=== PATIENT | female | born 1955 | race Caucasian/White ===

== ENCOUNTER → 2019-05-24 08:20 | Outpatient (CLI) | payer OTHER, SELFPAY ==
--- NOTE | ~2019-05-24 | MR_ITS ---
EXAMINATION: MR shoulder RT wo con DATE: 05/24/2019 09:09 INDICATION: Acute onset right shoulder pain TECHNIQUE: Magnetic resonance imaging (MRI) of the right shoulder was performed without intravenous c ontrast. Sequences included axial PD-weighted FS FSE, coronal oblique PD-weighted FS FSE, coronal obl ique T2-weighted FS FSE, sagittal PD-weighted FS FSE, and sagittal T1-weighted SE. COMPARISON: None. FINDINGS: Coracoacromial arch: The acromion undersurface is curved in morphology (type II). The coracoacromial ligament is normal. M ild acromioclavicular osteoarthritis. Rotator cuff: Full-thickness tear along the superior and middle facet footplates involving the entire infraspinatus tendon and all but a few of the bursal sided fibers of the anterior most supraspinatus tendon. 4-4.5 cm medial retraction of the tear margin. There is severe fatty atrophy of the infraspinatus muscle b esther. Mild fatty atrophy the supraspinatus muscle belly with mild feathery muscular edema which could be related to low-grade muscle strain along the posterior aspect of the supraspinatus muscle belly. There is complete lesser tuberosity avulsion of the insertion of the subscapularis tendon. The more c audal muscular insertion of the subscapularis appears to remain intact as do the bursal sided fibers of the tendon which remain contiguous with the transverse humeral ligament. Severe fatty atrophy of t he cephalad three fourths of the subscapularis muscle. There is mild tendinopathy without discrete te ar of the teres minor tendon. There is prominent feathery edema within the teres minor muscle belly c onsistent with low-grade muscle strain. Biceps tendon, glenoid labrum and glenohumeral cartilage: Moderate tendinopathy and longitudinal split tearing of the long head biceps tendon which is subluxed across the superficial margin of the inferior distal muscular portion of the subscapularis and acros s the lesser tuberosity subscapularis tendon tear defect. Degenerative tearing of the superior to pos terior and posterior inferior glenoid labrum. The inferior labrum is diminutive. Dorsal thickness car tilage loss with smooth chondral surface along the cephalad third of the glenoid and at the apex of t he humeral head, the latter which appears to articulate with the undersurface of the acromion. Fluid: Moderate-sized glenohumeral joint effusion with synovitis at the recesses of the joint space. No loos e osteochondral bodies. There is extension of the effusion into the subacromial/subdeltoid bursa. The re is mild edema extending caudally along the lateral margin of the proximal metaphyseal region of th e right humerus. Bones: Normal marrow signal with no fracture or pathologic marrow replacing process. Moderate cystic change at the greater tuberosity. Additional subarticular cystic change at the lateral head of the clavicle. IMPRESSION: 1. Massive rotator cuff tear involving the anterior infraspinatus, vast majority of the supraspinatus tendon and extending anteriorly to involve the entire lesser tuberosity insertion of the subscapular is tendon which is likely chronic in the severe associated muscular atrophy. 2. Muscular edema of the teres minor and posterior portion of the atrophic supraspinatus muscle belly consistent with more acute low-grade strain. 3. Mild glenohumeral osteoarthritis with degeneration along the superior to posterior inferior glenoi d labrum. 4. Moderate tendinopathy and longitudinal split tearing of the long head biceps tendon which is sublu xed medially across the lesser tuberosity. 5. Mild acromioclavicular osteoarthritis. Reviewed, dictated and finalized at location [facility]. 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
== END ==
DX: M19.011 Primary osteoarthritis, right shoulder (principal); R29.898 Other symptoms and signs involving the musculoskeletal system
CPT/HCPCS: 73221

== ENCOUNTER 2019-08-31 11:27 | Outpatient (CLI) | payer OTHER, SELFPAY ==
--- NOTE | ~2019-08-31 | CT_ITS ---
EXAMINATION: CT abdomen pelvis w con DATE: 08/31/2019 12:40 INDICATION: Right lower quadrant abdominal pain. Nausea, diarrhea. TECHNIQUE: Computed tomography (CT) of the abdomen and pelvis was performed with 100 cc Omnipaque 350 intravenous contrast. Automated exposure control and iterative reconstruction technique were employe d. Exam dose: 551.10 mGy-cm total exam DLP. COMPARISON: 10/15/2004 CT abdomen FINDINGS: The lung bases are clear of infiltrate or consolidation. Normal heart size. No pericardial or pleural effusion. Small sliding hiatal hernia. Status post cholecystectomy. No bile duct dilatation. 5.6 mm left hepatic cyst. The liver otherwise i s unremarkable. Normal splenic size. No pancreatic mass lesion or calcification or ductal dilatation. No adrenal mass lesion. 3 cm and 6 cm upper pole right renal cysts. The kidneys are otherwise unremarkable. No urinary tract calculus or hydroureteronephrosis. The urinary bladder is unremarkable. Status post hysterectomy. There is atherosclerotic calcification of the abdominal aorta and iliac arteries. No aneurysm is evid ent. No intraperitoneal or retroperitoneal or pelvic mass lesion or adenopathy or ascites. There is diverticulosis of the left colon; no CT evidence of diverticulitis. There is no CT evidence of appendicitis. No bowel obstruction, bowel wall thickening, pneumatosis. No intraperitoneal free ai r. There is prominent rotatory levoscoliosis and multilevel degenerative disc disease of the lower thora cic and lumbar spine. IMPRESSION: Small sliding hiatal hernia Status post cholecystectomy Status post hysterectomy Small left hepatic cyst Right renal cysts Diverticulosis of the colon; no CT evidence of diverticulitis No evidence of appendicitis Reviewed, dictated and finalized at [facility]. Reviewed, dictated and finalized at location [facility].
[2019-08-31 12:34] LABS: Estimated Glomerular Filt Rate > 60
== END 2019-08-31 11:28 | disposition home or self-care (01) ==
LOC: ANHIMG 11:29
PROVIDERS: PCP Family Medicine; Visit Provider Physician Assistant
DX: R10.31 Right lower quadrant pain (principal); K44.9 Diaphragmatic hernia without obstruction or gangrene; Z90.49 Acquired absence of other specified parts of digestive tract; N28.1 Cyst of kidney, acquired; K76.89 Other specified diseases of liver
CPT/HCPCS: 36415; 74177; Q9967

== ENCOUNTER → 2020-05-02 00:28 | Outpatient (CLI) | payer OTHER, SELFPAY ==
[2020-05-02 18:19] LABS: SARS-CoV-2 RNA PCR Negative
== END ==
PROVIDERS: PCP Family Medicine; Visit Provider Internal Medicine Gastroenterology
DX: Z01.812 Encounter for preprocedural laboratory examination (principal); Z20.822 Contact with and (suspected) exposure to COVID-19
CPT/HCPCS: C9803; U0003; U0005

== ENCOUNTER 2020-06-06 13:16 | Outpatient (CLI) | payer OTHER, SELFPAY ==
--- NOTE | ~2020-06-06 | XR_ITS ---
XR ribs RT 2V w CXR 2V DATE: 06/06/2020 13:40 INDICATION: Right rib pain after injury from fall TECHNIQUE: PA and lateral views. 3 views of the right ribs. COMPARISON: 05/29/2015 2 view chest FINDINGS: Prominent reverse S-shaped scoliosis of the thoracolumbar spine with associated multilevel degenerative disc disease. Diffuse osteopenia. No right rib fracture is detected. Normal heart size. No hilar or mediastinal enlargement. No pulmonary infiltrate or consolidation, ple ural effusion or pulmonary vascular congestion or pneumothorax. Surgical clips, right upper quadrant, consistent with cholecystectomy. IMPRESSION: No displaced right rib fractures evident Diffuse osteopenia Prominent reverse S-shaped thoracolumbar scoliosis with multilevel degenerative disc disease Reviewed, dictated and finalized at location [facility].
== END 2020-06-06 13:17 | disposition home or self-care (01) ==
LOC: ANHIMG 13:27
PROVIDERS: PCP Family Medicine; Visit Provider Nurse Practitioner Family
DX: R07.81 Pleurodynia (principal); S20.211A Contusion of right front wall of thorax, initial encounter; X58.XXXA Exposure to other specified factors, initial encounter; M85.88 Other specified disorders of bone density and structure, other site; M51.36 Other intervertebral disc degeneration, lumbar region
CPT/HCPCS: 71046; 71100

== ENCOUNTER 2020-06-07 08:36 | Emergency (ER) | payer OTHER, SELFPAY ==
[2020-06-07 08:44] VITALS: BP 145/99; PULSE 88; RESP 14; TEMP 36.6; O2SAT 100
[2020-06-07 09:24] LABS: Basophils Percent Auto 0.2 % (0.2-1.2); Eosinophils Absolute Auto 0.1 K/mm3 (0-0.3); Eosinophils Percent Auto 1.5 % (0-4.4); Hematocrit 39.4 % (37.0-47.0); Immature Granulocyte Absolute 0.02 K/mm3 (0.00-0.031); Immature Granulocyte Percent A 0.2 % (0-0.5); Lymphocytes Absolute Auto 3.87 K/mm3 (0.9-3.2); Lymphocytes Percent Auto 47.7 % (18.3-44.2); Mean Corpuscular Hemoglobin 34.7 pg (26-34); Mean Corpuscular Volume 105.1 fl (80-100); Mean Platelet Volume 10.3 fl (7.4-10.4); Monocytes Absolute Auto 0.6 K/mm3 (0.1-0.6); Neutrophils Absolute Auto 3.5 K/mm3 (1.3-6.7); Neutrophils Percent Auto 43.4 % (45.5-73.1); Platelet Count Result 248 k/mm3 (150-375); Red Blood Count 3.75 M/mm3 (4.2-5.4); Red Cell Distribution Width 15.2 % (11.5-14.5); White Blood Count 8.1 K/mm3 (4.5-10.0)
[2020-06-07] MEDS: SODIUM CHLORIDE 0.9% IV 1,000 ML 999 ML IV CONT (09:24)
[2020-06-07 09:27] VITALS: BP 131/96; PULSE 72; RESP 13; TEMP 36.8; O2SAT 99
--- NOTE | 2020-06-07 09:39 | ED.GENADULT ---
HPI - General Adult General Chief complaint: Unspecified Stated complaint: multiple complaints, rib pain, abn bld work Time Seen by Provider: 06/07/20 08:39 History of Present Illness HPI narrative: Patient is a 64-year-old female with history of alcoholism who presents the ER with concerns of abnormal lab work and right-sided rib pain. 1 week ago patient fell down. She had outpatient x-rays of her ribs yesterday. She is unsure what the results are. Chest pain with twisting and coughing and deep breath due to the fall. No fevers or chills or sweats or productive cough. She did not strike her head or lose consciousness. She also had outpatient blood work that showed she had an elevated creatinine and BUN. She is unsure what the levels are. Last drink was last night. Related Data Home Medications Medication Instructions Recorded Confirmed budesonide 3 mg 3 mg PO DAILY 08/31/19 04/15/20 capsule,delayed,extended release aspirin 81 mg tablet,delayed 81 mg PO DAILY 09/06/19 04/15/20 release folic acid 1 mg PO DAILY 04/15/20 04/15/20 meloxicam 15 mg PO DAILY 04/15/20 04/15/20 methotrexate sodium 15 mg PO WEEKLY 04/15/20 04/15/20 valacyclovir [Valtrex] 500 mg PO Q12H 06/07/20 Allergies Allergy/AdvReac Type Severity Reaction Status Date / Time adhesive tape Allergy Mild RASH, Verified 06/07/20 08:55 ITCHING [place]ADLEY Inhibitors Allergy Unknown Unknown Verified 06/07/20 08:55 [id number]-[id number] Reductase Allergy Unknown Joint Pain Verified 06/07/20 08:55 Inhibitor Sulfa (Sulfonamide Allergy Unknown Unknown Verified 06/07/20 08:55 Antibiotics) Review of Systems Review of Systems: All systems reviewed & are unremarkable except as noted in HPI and below Constitutional: Constitutional: Denies chills, Denies fever(s) and Denies frequent falls Respiratory: Respiratory: Denies cough, Reports pain with cough, Denies dyspnea and Denies dyspnea on exertion Gastrointestinal: Gastrointestinal: Denies abdominal pain, Reports nausea and Reports vomiting (After heavy drinking) [facility] Past Medical History Medical History (Updated 06/07/20 @ 11:21 by Calvin Ugarte MD) Anxiety and depression Collagenous colitis History of breast cancer Hypothyroidism Lymphocytic colitis Meniere's disease of left ear Mixed hyperlipidemia MELYSSA (obstructive sleep apnea) Surgical History Surgical History (Updated 06/07/20 @ 09:41 by Calvin Ugarte MD) No pertinent past surgical history Family History Family History Sibling Family history of diabetes mellitus in first degree relative Family history of malignant neoplasm of brain Family history of malignant neoplasm of breast in first degree relative Mother Family history of dementia Family history of malignant neoplasm of breast in first degree relative Father Family history of congestive heart failure Hypertension Family history of coronary artery disease Social History Social History Smoking packs per day: 0.5 Smoking cigarettes per day: 10.0 Years smoked: 30 Smoking pack-years: 15.00 Smoking status: Current every day smoker Tobacco type: cigarettes Second hand tobacco smoke exposure: Yes Alcohol intake: current Drinks per week: 8 Substance use: never Substance use type: does not use Gender identity (if verbalized by the patient): Female Spiritual care concerns: No Exam Narrative: Exam Narrative: GENERAL: Well-appearing, well-nourished, and in no acute distress. HEAD: Normocephalic, atraumatic. ENT: Mucous membranes moist. CHEST: Clear to auscultation. No respiratory distress. HEART: Regular rate and rhythm. Normal peripheral pulses. ABDOMEN: Soft, nontender, nondistended. EXTREMITIES: Normal range of motion. No edema. NEURO: Alert and oriented x3. PSYCH: Normal mood and affect. Course Course Emergency Course
[2020-06-07 09:54] LABS: Anion Gap 13 mmol/L (8-16); Blood Urea Nitrogen 24 mg/dL (7-17); Calcium 9.2 mg/dL (8.4-10.2); Carbon Dioxide 23 mmol/L (22-30); Chloride 105 mmol/L (98-107); Estimated CRCL calculation 55 ml/min; Estimated Glomerular Filt Rate > 60; Glucose 118 mg/dL (65-105); Potassium 3.7 mmol/L (3.4-5.0); Sodium 141 mmol/L (137-145)
[2020-06-07 10:13] LABS: Alanine Aminotransferase 25 U/L (4-35); Albumin Level 4.6 g/dL (3.5-5.1); Alkaline Phosphatase 49 U/L (38-126); Aspartate Amino Transferase 42 U/L (14-36); Bilirubin,Total 0.6 mg/dL (0.2-1.3)
[2020-06-07 10:44] VITALS: BP 124/86; PULSE 72; PULSE 74; RESP 20; TEMP 36.7; O2SAT 97
[2020-06-07 10:45] VITALS: RESP 20
[2020-06-07] MEDS: ONDANSETRON INJ 4 MG/2 ML VIAL IV PUSH (11:29)
[2020-06-07 11:39] VITALS: BP 125/91; PULSE 74; RESP 18; O2SAT 100
== END 2020-06-07 11:40 | disposition home or self-care (01) ==
PROVIDERS: Emergency Provider Emergency Medicine; PCP Family Medicine
DX: E86.0 Dehydration (principal); G47.33 Obstructive sleep apnea (adult) (pediatric); E78.2 Mixed hyperlipidemia; H81.02 Meniere's disease, left ear; F10.20 Alcohol dependence, uncomplicated; F17.210 Nicotine dependence, cigarettes, uncomplicated; Z85.3 Personal history of malignant neoplasm of breast; Z79.82 Long term (current) use of aspirin
CPT/HCPCS: 36415; 80048; 80076; 85025; 96361; 96374; 99284; J2405; J7030